=== PATIENT | male | born 1945 | race Caucasian/White ===

== ENCOUNTER 2021-06-27 12:56 | Outpatient (RCR) | payer MEDICARE, SELFPAY ==
[2021-06-27 13:25] VITALS: BP 144/70; PULSE 77; RESP 72; TEMP 35.9; BMI 31.7
--- NOTE | 2021-06-27 16:14 | PCM.WC.HP ---
History of Present Illness Date of Service: 06/27/21 Chief Complaint: Second-degree sifuentes to bilateral buttocks History of Wound: This is a 76-year-old male who presents to the wound healing center today with complaints of nonhealing sifuentes to the bilateral buttocks. He has a past medical history significant for atrial fibrillation, hypertension, and is on systemic anticoagulation at this time. The patient states on May 10 he fell asleep with a heating pad on and developed second-degree sifuentes to his bilateral buttocks. Since then he has been following up with his primary care and dermatology and has been utilizing Silvadene cream, however the wounds have failed to improve over the last couple of weeks so he was referred to the wound healing center. He denies any systemic or localized signs of infection. He is a non-smoker. He denies any other type of wound preparations. Past medical, family, and social history reviewed and not pertinent to the current visit and all other systems reviewed and negative with exception of those listed above. [facility] Medical History (Updated 06/27/21 @ 16:19 by Dax Marin NP, CREDIT COLLECTIONS MANAGER-C) Atrial fibrillation HTN (hypertension) Pressure ulcer, buttock Second degree burn of buttock Home Medications allopurinol 06/27/21 [History Last Taken Unknown] amlodipine 06/27/21 [History Last Taken Unknown] apixaban [Eliquis] 5 mg PO BID 06/27/21 [History Last Taken Unknown] aspirin [Aspir-81] 81 mg PO DAILY 06/27/21 [History Last Taken Unknown] finasteride 5 mg PO DAILY 06/27/21 [History Last Taken Unknown] levetiracetam 500 mg PO BID 06/27/21 [History Last Taken Unknown] lisinopril 20 mg PO DAILY 06/27/21 [History Last Taken Unknown] metoprolol succinate 50 mg PO DAILY 06/27/21 [History Last Taken Unknown] resveratrol-quercetin 06/27/21 [History Last Taken Unknown] rosuvastatin 40 mg PO DAILY 06/27/21 [History Last Taken Unknown] tamsulosin 0.4 mg PO DAILY 06/27/21 [History Last Taken Unknown] vit C-Zn gluc-herbal no.325 kranthi 06/27/21 [History Last Taken Unknown] Allergy/AdvReac Type Severity Reaction Status Date / Time No Known Allergies Allergy Verified 06/27/21 13:41 Social History Smoking Status: Never smoker ROS ROS Narrative Negative x10 systems with exception of those listed above Vital Signs Vital Signs Vital Signs: 06/27/21 13:25 Temperature 96.7 F L Temperature Source Temporal Pulse Rate 77 Respiratory Rate 72 H Blood Pressure 144/70 H Blood Pressure Mean 94 Blood Pressure Source Monitor Weight Weight: 221 lb 3.545 oz Body Mass Index (BMI) 31.7 Physical Exam Const alert, oriented x3, no apparent distress, healthy appearing and well nourished General Appearance: cooperative Exam Limitations: no limitations HEENT normocephalic Head and Scalp: normal to inspection Mouth: oral and palatal mucosa normal Eyes General Eye: normal appearance of both eyes Resp normal respiratory effort, normal air movement and no use of accessory muscles Effort and Inspection: able to speak in complete sentences Auscultation: clear to auscultation bilaterally Cardio regular rate, regular rhythm, S1 normal heart sound, S2 normal heart sound, no murmurs and peripheral pulses 2+ throughout Palpation: normal PMI Rate: regular rate Heart Sounds: S1 normal and S2 normal GI normal to inspection, nondistended, normoactive bowel sounds, soft to palpation, non-tender and non-distended Palpation: soft Extremity normal to inspection and full ROM General Extremity: normal exam except as noted Skin Wound Narrative: Nonhealing ulcers to bilateral buttocks with adherent slough, no signs of obvious infection at this time Neuro oriented x3 and moves all extremities Sensorium / Orientation: awake, alert, oriented to person, oriented to place and oriented to time Psych mental status grossly normal, thought process normal and denies hallucinations Appearance: grossly normal Attitude: calm Activity / Motor Behavior: appropriate eye contact Speech: normal speech Thought Process: normal thought process Thought Content: normal thought content Attention / Concentration: attention grossly intact Insight: insight good Judgement: judgement good Debridement Note Debridement Note Wound debrided: Nonhealing ulcers to bilateral buttocks secondary to second-degree burn Type of Debridement: Excisional debridement Anesthesia Used: 5% Lidocaine Gel Depth: Down to and including healthy tissue and in the subcutaneous layer Percentage of wound debrided: 100 Instrument Used: 3mm curette Tissue Removed: Slough and devitalized tissue Severity: Fat Layer Exposed Amount of bleeding with debridement: Mild Bleeding Controlled with: Pressure Patient tolerated procedure: Patient tolerated procedure well Post-Debridement Measurements and Additional Note: Post-Debridement Measurements/Treatment WC - Nurse 1 - General Ulcer Assessment Start: 06/27/21 13:25 Freq: Status: Active Protocol: EBONY Activity Type Activity Date Activity User E-Sign Co-Sign Detail Recorded Client Recorded Date Recorded By Document 06/27/21 13:25 DL [id number] 06/27/21 13:34 DL 06/27/21 13:25 WC - Today's Visit Information Type of service Initial Visit Arrival Mode Ambulatory Transfer Assistance None Patient Identification Verified (Name & Yes ) Patient Requires Transmission-Based No Precautions Blood Sugar Stated by Patient Height and Weight Height 5 ft 10 in Weight 221 lb 3.545 oz Weight in Pounds 221.2 lbs Body Mass Index (BMI) 31.7 BMI Classification Obese BSA - Von 2.18 Vital Signs Temperature (97.8 F-99.1 F) 96.7 F L Temperature Source Temporal Pulse Rate (60-100) 77 Pulse Location Monitor Respiratory Rate (12-18) 72 H Respiratory rate source Ausculation Blood Pressure (90/60-120/80) 144/70 H Blood Pressure Mean 94 Source Monitor Pain Scale: 0-10 Numeric Is Patient Pain Free? Yes Communication Assessment Preferred language [place]ian Community Specialist Required No Able to Read Yes Able to Write Yes Communication Tools None Caregiver Communication Skills No Impairment Impairment Right Hearing Abillity Hard of Hearing Left Hearing Abillity Hard of Hearing Visual Assistive Devices Glasses Teaching Assessment Preferences Verbal,Written, Demonstration Barriers to Learning None Readiness To Learn Good Willingness to Engage in Self Management Med Activies Readiness to Engage in Self Management Med Activities Anxiety Level Calm Cooperation Cooperative Perception Coherent Interest in Health Problem Asks Questions Education Importance Acknowledges Need Does Patient Smoke tobacco or other No substances Smoking Status Never smoker Is Patient Diabetic No Functional Assessment Recent Decline in Ability to Perform Denies Any Declines Culture/Rastafarian/[employer] Cultural/Rastafarian Needs that may affect No Treatment Plan Would you allow our hospital provider relations representative to No meet you for the purpose of spiritual/ emotional support? [employer] to contact place of mu-ism No Teaching: Wound Center Diagnostic Tests Ordered -Person Taught Patient, Significant Other Discharge Instructions -Person Taught Patient, Significant Other Dressing Your Wound -Person Taught Patient, Significant Other *Welcome to the Wound Center -Person Taught Patient, Significant Other WC - Nurse 1 - General Ulcer Measurement Start: 06/27/21 13:25 Freq: Status: Active Protocol: Activity Type Activity Date Activity User E-Sign Co-Sign Detail Recorded Client Recorded Date Recorded By Document 06/27/21 13:25 DL [id number] 06/27/21 13:34 DL 06/27/21 13:25 Wound Center Nurse 1 #2 L Buttocks -Current Size (cm) - Length 1.2 -Current Size (cm) - Width 0.5 -Current Size (cm) - Depth 0.1 -Total Square Cm 0.60 -Photo Taken Yes -Exudate Amt Small -Exudate Type Serosanguineous -Wound Margin Distinct, Outline Attached -Granulation Amt Small (1-33%) -Granulation Quality Hodge -Necrosis Amt Large (67-100%) -Necrotic Tissue Type Adherent Slough -Structure Exposed N/A -Texture (Reyna-wound Skin Appearance) Scarring -Moisture (Reyna-wound Skin Appearance) No Abnormality -Color (Reyna-wound Skin Appearance) Rubor -Temperature (Reyna-wound Skin No Abnormality Appearance) (Pt Warm) -Tenderness on Palpation (Reyna-wound No Skin Appearance) -Ulcer Cleansing Soap and Water -Foul Odor after Cleansing No -Anesthetic Used 4% Lidocaine Solution #1 R Buttockes -Current Size (cm) - Length 0.7 -Current Size (cm) - Width 0.8 -Current Size (cm) - Depth 0.1 -Total Square Cm 0.56 -Photo Taken Yes -Exudate Amt Small -Exudate Type Serosanguineous -Wound Margin Distinct, Outline Attached -Granulation Amt Small (1-33%) -Granulation Quality Hodge -Necrosis Amt Large (67-100%) -Necrotic Tissue Type Adherent Slough -Structure Exposed N/A -Texture (Reyna-wound Skin Appearance) Scarring -Moisture (Reyna-wound Skin Appearance) No Abnormality -Color (Reyna-wound Skin Appearance) Rubor -Temperature (Reyna-wound Skin No Abnormality Appearance) (Pt Warm) -Tenderness on Palpation (Reyna-wound No Skin Appearance) -Ulcer Cleansing Soap and Water -Foul Odor after Cleansing No -Anesthetic Used 4% Lidocaine Solution WC - Nurse 2 - General Ulcer CM Notes Start: 06/27/21 13:25 Freq: Status: Active Protocol: Activity Type Activity Date Activity User E-Sign Co-Sign Detail Recorded Client Recorded Date Recorded By Document 06/27/21 14:28 MW [id number] 06/27/21 14:34 MW 06/27/21 14:28 Wound Center Nurse 2 #2 L Buttocks -Time 14:28 -Correct Patient Yes -Correct Side, Site, Position Yes -Correct Procedure Yes -Procedure Performed Yes -Type of Procedure Debridement -Clinical Debridement Subcutaneous -Tissue Removed Subcutaneous -Post Debridement (cm) - Length 1.5 -Post Debridement (cm) - Width 0.5 -Post Debridement (cm) - Depth 0.2 -Total Square (Post) (cm) 0.75 -Area of Debridement (cm) - Length 1.5 -Area of Debridement (cm) - Width 0.5 -Total Square (Area) (cm) 0.75 -Tunneling No -Undermining/Tunneling No -Circular Undermining No -Wound/Ulcer Outcome Not Healed -Ulcer Cleansing Rinsed/ Irrigated with Saline -Foul Odor after Cleansing No -Bioengineered Tissue No -Bleeding Controlled with Pressure -Offloading No -Treatment Response Procedure Tolerated Well -Debridement - Subq, 1st 20sq cm Yes #1 R Buttockes -Time 14:30 -Correct Patient Yes -Correct Side, Site, Position Yes -Correct Procedure Yes -Procedure Performed Yes -Type of Procedure Debridement -Clinical Debridement Subcutaneous -Tissue Removed Subcutaneous -Post Debridement (cm) - Length 1.2 -Post Debridement (cm) - Width 0.6 -Post Debridement (cm) - Depth 0.2 -Total Square (Post) (cm) 0.72 -Area of Debridement (cm) - Length 1.2 -Area of Debridement (cm) - Width 0.6 -Total Square (Area) (cm) 0.72 -Tunneling No -Undermining/Tunneling No -Circular Undermining No -Wound/Ulcer Outcome Not Healed -Ulcer Cleansing Rinsed/ Irrigated with Saline -Foul Odor after Cleansing No -Bioengineered Tissue No -Bleeding Controlled with Pressure -Offloading No -Treatment Response Procedure Tolerated Well -Debridement - Subq, 1st 20sq cm No Pain Scale: 0-10 Numeric Is Patient Pain Free? Yes WC - Nurse 3 - General Ulcer D/C NN Start: 06/27/21 13:25 Freq: Status: Active Protocol: Activity Type Activity Date Activity User E-Sign Co-Sign Detail Recorded Client Recorded Date Recorded By Document 06/27/21 14:40 NE [id number] 06/27/21 14:42 NE 06/27/21 14:40 Wound Care Nurse 3 #2 L Buttocks -Ulcer Cleansing Rinsed/ Irrigated with Saline -Foul Odor after Cleansing No -Negative Pressure Wound Therapy N/A -Primary Dressing Applied Mepilex Border, Promogran Marjorie Matter -Mepilex Border 1 -Promogran Marjorie Matter 1 #1 R Buttockes -Ulcer Cleansing Rinsed/ Irrigated with Saline -Foul Odor after Cleansing No -Negative Pressure Wound Therapy N/A -Primary Dressing Applied Mepilex Border, Promogran Marjorie Matter -Mepilex Border 1 -Promogran Marjorie Matter 0 WC - Visit Discharge Discharge Condition Stable Transportation Private Auto Accompanied by Medication Reconcilliation completed & No provided to patient/care provider Clinical Summary of Care Provided Yes Charges/Coding Visit Charges Office Visits / Consults: 81577 OV L4 New Procedures Integumentary 111xxx-113xx: [id number] Dione subq tissue 20 sq cm/< Assessment/Plan Assessment/Plan (1) Second degree burn of buttock: CODE(S): T21.25XA - Burn of second degree of buttock, initial encounter (2) Pressure ulcer, buttock: CODE(S): L89.309 - Pressure ulcer of unspecified buttock, unspecified stage (3) HTN (hypertension): CODE(S): I10 - Essential (primary) hypertension (4) Atrial fibrillation: CODE(S): I48.91 - Unspecified atrial fibrillation PLAN: Debridement performed today in clinic as annotated above. Marjorie and foam dressing applied. At home wound-care instructions: Daily application of Marjorie and foam dressing to bilateral buttocks Change dressing once daily or more frequently as needed due to contamination. Wash wounds daily with antibacterial soap and water, rinse and dry thoroughly before each dressing change. Compression: Not indicated Off-loading: The patient was instructed to avoid pressure and friction on the affected areas. Reposition every 2 hours at minimum. Avoid prolonged standing and/or dangling of legs. When seated, feet should be elevated at chest level. Frequent ambulation is encouraged. Diet: Patient encouraged to increase protein intake while taking caution to avoid high carbohydrate and/or sugar intake. Patient is a non-smoker Labs/cultures/imaging: Cultures held. Routine baseline lab work held Follow-up: Return to clinic in 2 week for re-evaluation. Return sooner or report to the emergency room should symptoms worsen, or new symptoms arise. This note was generated with [employer] dictation software. It may contain incorrect words, spelling, and punctuation that were not noted in checking the note before signing. I have spent 45 minutes today reviewing labs, records, and history. Time includes coordinating care, interpretation of tests, and counseling the patient/family. This also includes time I spent with the patient for exam, treatment plan, and education as well as documenting clinical information in the electronic health record.
== END 2021-07-09 23:59 ==
LOC: WC 12:56
PROVIDERS: PCP Internal Medicine; Visit Provider Nurse Practitioner Family
DX: L89.329 Pressure ulcer of left buttock, unspecified stage (principal); L89.319 Pressure ulcer of right buttock, unspecified stage; T21.2 Burn of second degree of trunk; X19.XXXS Contact with other heat and hot substances, sequela; I10 Essential (primary) hypertension; I48.91 Unspecified atrial fibrillation; Z79.01 Long term (current) use of anticoagulants; Z79.899 Other long term (current) drug therapy; Z79.82 Long term (current) use of aspirin
CPT/HCPCS: 11042; 99203; G0463

== ENCOUNTER 2021-07-11 13:15 | Outpatient (RCR) | payer MEDICARE, SELFPAY ==
[2021-07-10 00:39] VITALS: BP 144/70; PULSE 77; RESP 72; TEMP 35.9; BMI 31.7
--- NOTE | 2021-07-11 16:29 | PCM.WC.PN ---
History of Present Illness Date of Service: 07/11/21 Chief Complaint: Second-degree sifuentes to bilateral buttocks History of Wound: This is a 76-year-old male who presents to the wound healing center today with complaints of nonhealing sifuentes to the bilateral buttocks. He has a past medical history significant for atrial fibrillation, hypertension, and is on systemic anticoagulation at this time. The patient states on May 10 he fell asleep with a heating pad on and developed second-degree sifuentes to his bilateral buttocks. Since then he has been following up with his primary care and dermatology and has been utilizing Silvadene cream, however the wounds have failed to improve over the last couple of weeks so he was referred to the wound healing center. He denies any systemic or localized signs of infection. He is a non-smoker. He denies any other type of wound preparations. Past medical, family, and social history reviewed and not pertinent to the current visit and all other systems reviewed and negative with exception of those listed above. Progress of Wound: Wounds are healed without any signs of infection at this time Objective Data Objective Data Vital Signs: Vital Signs Temp Pulse Resp BP 96.7 F L 77 72 H 144/70 H 07/10/21 00:39 07/10/21 00:39 07/10/21 00:39 07/10/21 00:39 Weight: 221 lb 3.545 oz Body Mass Index (BMI) 31.7 Charges/Coding Visit Charges Office Visits / Consults: 51276 OV L3 Est Physical Exam Const alert, oriented x3, no apparent distress, healthy appearing and well nourished General Appearance: cooperative Exam Limitations: no limitations HEENT normocephalic Head and Scalp: normal to inspection Mouth: oral and palatal mucosa normal Eyes General Eye: normal appearance of both eyes Resp normal respiratory effort, normal air movement and no use of accessory muscles Effort and Inspection: able to speak in complete sentences Auscultation: clear to auscultation bilaterally Cardio regular rate, regular rhythm, S1 normal heart sound, S2 normal heart sound, no murmurs and peripheral pulses 2+ throughout Palpation: normal PMI Rate: regular rate Heart Sounds: S1 normal and S2 normal GI normal to inspection, nondistended, normoactive bowel sounds, soft to palpation, non-tender and non-distended Palpation: soft Extremity normal to inspection and full ROM General Extremity: normal exam except as noted Skin Wound Narrative: Nonhealing ulcers to bilateral buttocks healed with no signs of obvious infection at this time Neuro oriented x3 and moves all extremities Sensorium / Orientation: awake, alert, oriented to person, oriented to place and oriented to time Psych mental status grossly normal, thought process normal and denies hallucinations Appearance: grossly normal Attitude: calm Activity / Motor Behavior: appropriate eye contact Speech: normal speech Thought Process: normal thought process Thought Content: normal thought content Attention / Concentration: attention grossly intact Insight: insight good Judgement: judgement good Debridement Note Debridement Note No debridement was completed: No debridement was completed today Assessment/Plan Assessment/Plan (1) Second degree burn of buttock: CODE(S): T21.25XA - Burn of second degree of buttock, initial encounter (2) Pressure ulcer, buttock: CODE(S): L89.309 - Pressure ulcer of unspecified buttock, unspecified stage (3) HTN (hypertension): CODE(S): I10 - Essential (primary) hypertension (4) Atrial fibrillation: CODE(S): I48.91 - Unspecified atrial fibrillation PLAN: No debridement performed today as wound is healed. He may utilize Adaptic cover with foam dressing for the next week for wound protection. Otherwise he will be discharged from the wound healing center today and follow-up only if new wounds occur in the future. Increase vitamin C and protein over the next month to ensure wound healing as well. This note was generated with [employer] dictation software. It may contain incorrect words, spelling, and punctuation that were not noted in checking the note before signing. I have spent 25 minutes today reviewing labs, records, and history. Time includes coordinating care, interpretation of tests, and counseling the patient/family. This also includes time I spent with the patient for exam, treatment plan, and education as well as documenting clinical information in the electronic health record.
== END 2021-07-11 14:51 | disposition home or self-care (01) ==
LOC: WC 13:15
PROVIDERS: PCP Internal Medicine; Visit Provider Nurse Practitioner Family
DX: L89.329 Pressure ulcer of left buttock, unspecified stage (principal); L89.319 Pressure ulcer of right buttock, unspecified stage; T21.2 Burn of second degree of trunk; X19.XXXS Contact with other heat and hot substances, sequela; I10 Essential (primary) hypertension; I48.91 Unspecified atrial fibrillation; Z79.01 Long term (current) use of anticoagulants; Z79.899 Other long term (current) drug therapy; Z79.82 Long term (current) use of aspirin
CPT/HCPCS: 99213; G0463